=== PATIENT | female | born 1975 | race Caucasian/White ===

== ENCOUNTER 2025-02-02 14:54 | Outpatient (CLI) | payer OTHER, SELFPAY ==
--- NOTE | 2025-02-02 15:00 | CRLHL7_ITS ---
For Patients: As a result of the Century Cures Act, medical imaging exams and procedure reports are released immediately into your electronic medical record. You may view this report before your referring provider. If you have questions, please contact your health care provider. INDICATION: COMPARISON: 03/15/2017 TECHNIQUE: 2D navarrete-scale and color Doppler images were acquired of the pelvis using a transabdominal and transvaginal approach. Transvaginal imaging performed to better visualize the endometrial stripe and ovaries. FINDINGS: Sonographic images demonstrate a normal size and smooth outer contour of the uterus. Uterus measures 6.6 cm in length by 3.1 cm in AP diameter by 4.5 cm in transverse dimension. The myometrium has a mildly heterogeneous echotexture. The endometrial lining measures 5 mm in composite thickness. The right ovary measures 2.4 x 0.9 x 1.4 cm in size and the left ovary measures 2.2 x 1.1 x 1.6 cm. The ovaries demonstrate normal arterial and venous blood flow on color Doppler analysis. There are no suspicious fluid collections within the cul-de-sac. IMPRESSION: Endometrial thickness 5 millimeters. No endometrial fluid. No uterine fibroid. Dictated by Ajay Fernandes MD @ 02/03/2025 7:12:53 AM (Electronically Signed)
== END 2025-02-02 14:55 | disposition home or self-care (01) ==
LOC: US 14:55
PROVIDERS: PCP Family Medicine; Visit Provider Physician Assistant
DX: N92.1 Excessive and frequent menstruation with irregular cycle (principal); R93.89 Abnormal findings on diagnostic imaging of other specified body structures
CPT/HCPCS: 76830; 76856

== ENCOUNTER 2025-02-09 17:27 | Outpatient (CLI) | payer OTHER, MEDICARE, SELFPAY | END 2025-02-09 17:28 | disposition home or self-care (01) | PROVIDERS: PCP Family Medicine; Referring Provider Family Medicine; Visit Provider Physician Assistant | DX: R35.0 Frequency of micturition (principal); N39.0 Urinary tract infection, site not specified | CPT/HCPCS: 87086 ==

== ENCOUNTER 2025-03-24 15:10 | Outpatient (CLI) | payer MEDICARE, OTHER, SELFPAY | END 2025-03-24 15:11 | disposition home or self-care (01) | LOC: NFLDREF 03-30 02:16 | PROVIDERS: PCP Family Medicine; Referring Provider Family Medicine; Visit Provider Physician Assistant | DX: N92.1 Excessive and frequent menstruation with irregular cycle (principal) | CPT/HCPCS: 83001 ==